=== PATIENT | female | born 1990 | race African-American/Black ===

== ENCOUNTER 2019-05-21 20:34 | Emergency (ER) | payer MEDICAID ==
[~2019-05-21] VITALS: Ht 170.2 cm; Wt 97.1 kg
[2019-05-21 21:10] VITALS: BP 145/90
--- NOTE | 2019-05-21 21:43 | NUR ---
PT TAKEN TO X-RAY
--- NOTE | 2019-05-21 21:50 | NUR ---
PT RETURNED FROM X-RAY. PLACED IN ROOM 7.
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
--- NOTE | 2019-05-21 22:05 | NUR ---
PT STATES SHE NOTIFIED [facility] DEPT THIS MORNING. DEPUTReza PAIRS
--- NOTE | 2019-05-21 22:30 | NUR ---
PT RESTING IN BED SITTING UP EYES OPEN. REPIRATIONS ARE EVEN AND UNLABORED SKIN IS WARM AND DRY TO TOUCH. PT FRIEND AT BESIDE.
--- NOTE | 2019-05-21 22:47 | NUR ---
DR SPRINGER AT BEDSIDE.
--- NOTE | 2019-05-21 23:00 | NUR ---
PT LEFT BEFORE RECIVING D/C PAPERWORK. PAPERS NOT SIGNED. DR. SPRINGER MADE AWARE.
[2019-05-21 23:05] VITALS: BP 145/90
== END 2019-05-21 23:00 | disposition home or self-care (01) ==
LOC: MED 20:34
DX: S60.221A Contusion of right hand, initial encounter (principal); R68.84 Jaw pain; J45.909 Unspecified asthma, uncomplicated; Z88.1 Allergy status to other antibiotic agents; Z88.8 Allergy status to other drugs, medicaments and biological substances; Y08.89XA Assault by other specified means, initial encounter; Y93.89 Activity, other specified; Y92.89 Other specified places as the place of occurrence of the external cause; Y99.8 Other external cause status
CPT/HCPCS: 70110; 99283